=== PATIENT | female | born 1985 | race American Indian/Alaskan Native ===

== ENCOUNTER 2021-03-28 14:00 | Emergency (ER) | payer SELFPAY ==
[2021-03-28 14:09] VITALS: BP 121/81
--- NOTE | 2021-03-28 14:52 | Emergency Department Report ---
ED ENT HPI - General Chief complaint: Dental/Oral Stated complaint: SWOOLEN GUMS/ PAIN IN TOOTH Time Seen by Provider: 03/28/21 14:37 Source: patient Mode of arrival: Ambulatory Limitations: No Limitations - History of Present Illness Initial comments: Patient is a 36-year-old female presents emergency room complaints of left upper dental pain that began a week ago. She reports that she needs to have a root canal in this tooth. She states that she has had difficulty getting into a dentist. States that has started to swell and become more painful. Has any fever, nausea, vomiting, diarrhea, chills, difficulty swallowing, difficulty breathing, swelling in the face. No past medical history. No allergies to medications. Last menstrual cycle 03/21/2021. - Related Data Previous Rx's Medication Instructions Recorded Last Taken Type HYDROcodone/APAP 5-325 [[place] 1 each PO Q6HR PRN #16 tablet 03/06/14 Unknown Rx 5-325 mg TAB] Sulfamethoxazole/Trimethoprim 1 each PO Q12H #14 tablet 03/06/14 Unknown Rx [Bactrim Ds] Chlorhexidine Mouthwash [Peridex] 15 ml MM BID #1 bottle 03/28/21 Unknown Rx Fluconazole [Diflucan TAB] 100 mg PO QDAY #2 tablet 03/28/21 Unknown Rx Ibuprofen [Motrin 600 MG tab] 600 mg PO Q8H PRN #20 tablet 03/28/21 Unknown Rx Penicillin Vk [Veetids TAB] 500 mg PO QID 7 Days #56 tablet 03/28/21 Unknown Rx Allergies Allergy/AdvReac Type Severity Reaction Status Date / Time No Known Allergies Allergy Verified 03/28/21 14:05 ED Dental HPI - General Chief complaint: Dental/Oral Stated complaint: SWOOLEN GUMS/ PAIN IN TOOTH Time Seen by Provider: 03/28/21 14:37 Source: patient Mode of arrival: Ambulatory Limitations: No Limitations - Related Data Previous Rx's Medication Instructions Recorded Last Taken Type HYDROcodone/APAP 5-325 [[place] 1 each PO Q6HR PRN #16 tablet 03/06/14 Unknown Rx 5-325 mg TAB] Sulfamethoxazole/Trimethoprim 1 each PO Q12H #14 tablet 03/06/14 Unknown Rx [Bactrim Ds] Chlorhexidine Mouthwash [Peridex] 15 ml MM BID #1 bottle 03/28/21 Unknown Rx Fluconazole [Diflucan TAB] 100 mg PO QDAY #2 tablet 03/28/21 Unknown Rx Ibuprofen [Motrin 600 MG tab] 600 mg PO Q8H PRN #20 tablet 03/28/21 Unknown Rx Penicillin Vk [Veetids TAB] 500 mg PO QID 7 Days #56 tablet 03/28/21 Unknown Rx Allergies Allergy/AdvReac Type Severity Reaction Status Date / Time No Known Allergies Allergy Verified 03/28/21 14:05 ED Review of Systems ROS: Stated complaint: SWOOLEN GUMS/ PAIN IN TOOTH Other details as noted in HPI Comment: All other systems reviewed and negative ED Past Medical Hx - Past Medical History Previous Medical History?: No - Surgical History Past Surgical History?: No - Social History Smoking Status: Never Smoker Substance Use Type: None - Medications Home Medications: Home Medications Medication Instructions Recorded Confirmed Last Taken Type HYDROcodone/APAP 5-325 [[place] 1 each PO Q6HR PRN #16 tablet 03/06/14 Unknown Rx 5-325 mg TAB] Sulfamethoxazole/Trimethoprim 1 each PO Q12H #14 tablet 03/06/14 Unknown Rx [Bactrim Ds] Chlorhexidine Mouthwash [Peridex] 15 ml MM BID #1 bottle 03/28/21 Unknown Rx Fluconazole [Diflucan TAB] 100 mg PO QDAY #2 tablet 03/28/21 Unknown Rx Ibuprofen [Motrin 600 MG tab] 600 mg PO Q8H PRN #20 tablet 03/28/21 Unknown Rx Penicillin Vk [Veetids TAB] 500 mg PO QID 7 Days #56 tablet 03/28/21 Unknown Rx ED Physical Exam - General Limitations: No Limitations General appearance: alert, in no apparent distress - Head Head exam: Present: atraumatic, normocephalic - Eye Eye exam: Present: normal appearance - ENT ENT exam: Present: mucous membranes moist, other (there is a dental carry present to the left upper back molar, there is a 1cm area of induration present to the gumline, no facial edema, uvula is midline, no uvular edema or deviation, no trismus, no tongue elevation, no muffled voice, no submandibular edema) - Respiratory Respiratory exam: Absent: respiratory distress, accessory muscle use - Neurological Exam Neurological exam: Present: alert, oriented X3 - Psychiatric Psychiatric exam: Present: normal affect, normal mood - Skin Skin exam: Present: warm, dry, intact ED Course Vital Signs 03/28/21 03/28/21 03/28/21 14:07 15:31 15:32 Temperature 98.7 F Pulse Rate 87 75 Respiratory 16 19 19 Rate Blood Pressure 121/81 O2 Sat by Pulse 98 98 98 Oximetry ED Medical Decision Making - Medical Decision Making Patient is a 36-year-old female presents emergency room complaints of left upper dental pain that began a week ago. She reports that she needs to have a root canal in this tooth. She states that she has had difficulty getting into a dentist. States that has started to swell and become more painful. Has any fever, nausea, vomiting, diarrhea, chills, difficulty swallowing, difficulty breathing, swelling in the face. No past medical history. No allergies to medications. Last menstrual cycle 03/21/2021. vitals are normal. on exam: there is a dental carry present to the left upper back molar, there is a 1cm area of induration present to the gumline, no facial edema, uvula is midline, no uvular edema or deviation, no trismus, no tongue elevation, no muffled voice, no submandibular edema. examination consistent with dental caries and dental abscess. given prescription for meds. she states she gets yeast infections with abx and is requesting diflucan. advised pt Please take medication as prescribed. Follow-up with a dentist. Return to emergency room for new or worsening symptoms. Critical care attestation.: If time is entered above; I have spent that time in minutes in the direct care of this critically ill patient, excluding procedure time. ED Disposition Clinical Impression: Dental abscess, Dental caries Disposition: TO HOME OR SELFCARE Is pt being admited?: No Does the pt Need Aspirin: No Condition: Stable Instructions: Dental Abscess Additional Instructions: Please take medication as prescribed. Follow-up with a dentist. Return to emergency room for new or worsening symptoms. Prescriptions: Fluconazole [Diflucan TAB] 100 mg PO QDAY #2 tablet Ibuprofen [Motrin 600 MG tab] 600 mg PO Q8H PRN #20 tablet PRN Reason: Pain Chlorhexidine Mouthwash [Peridex] 15 ml MM BID #1 bottle Penicillin Vk [Veetids TAB] 500 mg PO QID 7 Days #56 tablet Referrals: [facility] [Outside] - 3-5 Days [facility] [Outside] - 3-5 Days Time of Disposition: 14:51 Print Language: LITHUANIAN
== END 2021-03-28 15:33 | disposition home or self-care (01) ==
LOC: ED 14:00
DX: K04.7 Periapical abscess without sinus (principal); K02.9 Dental caries, unspecified; Z79.899 Other long term (current) drug therapy
CPT/HCPCS: 99282